=== PATIENT | male | born 1955 | race Caucasian/White ===

== ENCOUNTER 2022-07-19 12:05 | Emergency (ER) | payer BC, OTHER ==
[2022-07-19 12:44] VITALS: BP 200/98; PULSE 79; RESP 17; TEMP 98.2; BMI 32.5
== END 2022-07-19 15:09 | disposition home or self-care (01) ==
LOC: JER 12:05
DX: M27.2 Inflammatory conditions of jaws (principal)
CPT/HCPCS: 99281-25